=== PATIENT | male | born 1965 | race Caucasian/White ===

== ENCOUNTER 2020-07-06 08:26 | Outpatient (CLI) | payer BC, SELFPAY ==
--- NOTE | 2020-07-06 11:30 | NEURO_ITS ---
Impression: # Complains of numbness of feet. Not diabetic. # Normal motor and sensory nerve conduction study. # Normal needle/EMG exam. # Possibility of higher involvement cannot be ruled out. Nerve Conduction Studies Anti Sensory Summary Table Stim Site NR Peak (ms) P-T Amp (?V) Site1 Site2 Delta-P (ms) Dist (cm) Jose (m/s) Left Sup Fibular Anti Sensory (Ant Lat Mall) 14 cm 3.4 12.4 14 cm Ant Lat Mall 3.4 16.0 47 Right Sup Fibular Anti Sensory (Ant Lat Mall) 14 cm 3.4 6.9 14 cm Ant Lat Mall 3.4 16.0 47 Left Sural Anti Sensory (Lat Mall) Calf 3.9 11.1 Calf Lat Mall 3.9 16.0 41 Right Sural Anti Sensory (Lat Mall) Calf 3.8 9.4 Calf Lat Mall 3.8 16.0 42 Motor Summary Table Stim Site NR Onset (ms) O-P Amp (mV) Site1 Site2 Delta-0 (ms) Dist (cm) Jose (m/s) Left Peroneal Motor (Vastus Med) Ankle 4.3 5.7 Popit Ankle 9.5 41.0 43 Popit 13.8 3.5 Right Peroneal Motor (Vastus Med) Ankle 4.1 3.0 Popit Ankle 8.8 38.0 43 Popit 12.9 1.8 Left Tibial Motor (Abd Hilario Brev) Ankle 4.2 1.7 Knee Ankle 9.9 44.0 44 Knee 14.1 1.2 Right Tibial Motor (Abd Hilario Brev) Ankle 4.5 3.4 Knee Ankle 10.5 44.0 42 Knee 15.0 1.1 F Wave Studies NR F-Lat (ms) L-R F-Lat (ms) Left Peroneal (Mrkrs) (EDB) 54.80 0.48 Right Peroneal (Mrkrs) (EDB) 55.28 0.48 Left Tibial (Mrkrs) (Abd Hallucis) 55.01 0.87 Right Tibial (Mrkrs) (Abd Hallucis) 55.88 0.87 EMG Side Muscle Nerve Root Ins Act Fibs Amp Dur Recrt Comment Right AntTibialis Dp Br Fibular L4-5 Nml Nml Nml Nml Nml Right Gastroc Tibial S1-2 Nml Nml Nml Nml Nml Right Fibularis Long Sup Br Fibular L5-S1 Nml Nml Nml Nml Nml Right Flex Dig Long Tibial L5-S2 Nml Nml Nml Nml Nml Right Ext Dig Brev Dp Br Fibular L5, S1 Nml Nml Nml Nml Nml Left AntTibialis Dp Br Fibular L4-5 Nml Nml Nml Nml Nml Left Gastroc Tibial S1-2 Nml Nml Nml Nml Nml Left Fibularis Long Sup Br Fibular L5-S1 Nml Nml Nml Nml Nml Left Flex Dig Long Tibial L5-S2 Nml Nml Nml Nml Nml Left Ext Dig Brev Dp Br Fibular L5, S1 Nml Nml Nml Nml Nml MTDD
== END 2020-07-06 08:27 | disposition home or self-care (01) ==
PROVIDERS: Family Provider Internal Medicine; Visit Provider Internal Medicine
DX: G62.9 Polyneuropathy, unspecified (principal)
CPT/HCPCS: 95886; 95910

== ENCOUNTER 2021-05-15 01:09 | Day surgery (SDC) | payer BC, SELFPAY ==
[2021-05-10 15:14] VITALS: BMI 35.2
[2021-05-15 06:59] VITALS: BP 140/81; PULSE 74; RESP 20; TEMP 36.4; O2SAT 98
[2021-05-15] MEDS: LACTATED RINGERS 1,000 ML 150 ML IV CONT (07:03)
--- NOTE | 2021-05-15 07:26 | WPDGICN ---
Assessment and Plan Assessment and plan (1) Colon cancer screening: Code(s): Z12.11 - Encounter for screening for malignant neoplasm of colon Status: Acute Assessment and Plan: Patient presents for neoplasia screening. Appears to be at average risk for colon polyps. Further recommendations will be given after endoscopy. (2) Gastro-esophageal reflux disease without esophagitis: Code(s): K21.9 - Gastro-esophageal reflux disease without esophagitis Status: Acute Assessment and Plan: Patient has chronic GE reflux. Currently has no symptoms has been maintained on Nexium 40mg p.o. daily long-term. An EGD will be performed because of chronicity of diagnosis. GI Consult Note Consult date/time: 05/15/21 07:26 HPI: Evan Wood is a 56 year old male Presents for colonoscopy an EGD. Patient desires neoplasia screening. His current weight appetite bowel movements are normal. He denies abdominal pain. He has had no bleeding. Family history is noncontributory. He presents today for screening colonoscopy. Patient also has a long history of acid reflux. He has been on PPI therapy for more than 10 years. This is well controlled. He denies any heartburn or indigestion. He has had no dysphagia. He does have arthritis and occasionally requires nonsteroidal anti-inflammatory agent use. An EGD is requested will be performed because of chronic GE reflux disease. Review of Systems Review of Systems: All systems reviewed & are unremarkable except as noted in HPI and below PMFSH Past Medical History Medical History Arthritis CAD (coronary artery disease) Fourniers disease Hypertension Surgical History Surgical History H/O colonoscopy (~2006) and endoscopy History of endoscopy (~05/2013) 05/26/2013 S/P angioplasty with stent Family History Family History Father Heart disease Mother Heart disease Lung cancer Sibling Heart disease Other Diabetes mellitus Family history of coronary artery disease Social History Social History Smoking status: Never smoker Second hand tobacco smoke exposure: Yes Alcohol intake: current Drinks per week: 2 Alcohol use details: bourbon Substance use: never Substance use type: does not use Living arrangements: with family 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 Gender identity (if verbalized by the patient): Male Spiritual care concerns: No Agree to blood products: Yes Meds Home Medications and Allergies Home Medications Medication Instructions Recorded Confirmed Type aspirin 81 mg chewable tablet 81 mg PO DAILY #360 tablet 01/13/19 05/15/21 Rx clopidogrel 75 mg tablet 75 mg PO DAILY 04/27/19 05/15/21 History amlodipine 5 mg tablet 5 mg PO DAILY 05/12/19 05/15/21 History lisinopril 40 mg tablet 20 mg PO DAILY tablet 05/12/19 05/15/21 History nitroglycerin 0.4 mg sublingual 0.4 mg SUBLINGUAL ONCE PRN tablet 06/25/19 05/15/21 History tablet evolocumab 140 mg/mL subcutaneous 140 mg SUBCUT .Q2W ml 03/15/20 05/15/21 History pen injector coenzyme Q10 100 mg tablet 200 mg PO DAILY tablet 07/07/20 05/15/21 History metoprolol succinate 100 mg 50 mg PO DAILY tablet 07/07/20 05/15/21 History tablet,extended release 24 hr [id number]-afiurlld-mwtfry tablet 1 tablet PO DAILY 07/07/20 05/15/21 History diclofenac 75 mg-misoprostol 200 1 tablet PO BID 90 Days #180 tablet 07/28/20 05/15/21 Rx mcg tablet,immediate,delayed release esomeprazole magnesium 40 mg See Rx Instructions .ROUTE 05/01/21 05/15/21 Rx capsule,delayed release .COMPLEX #90 cap psyllium husk [Metamucil] 1 tbsp PO DAILY 05/10/21 05/15/21 History ranolazine 1,000 mg PO BID 05/10/21 05/15/21 Histo
--- NOTE | 2021-05-15 07:49 | WPDANESEPPF ---
Anes - Initial Pre Proc Eval Procedure: Operation Date: 05/15/21 08:00 Proposed Procedures p Esophagogastroduodenoscopy & Screening Colonoscopy - Moises Ag MD Date/Time: 05/15/21 07:49 Surgeon: Moises Ag MD Pre Op Diagnosis: GERD, neoplasm screening Patient Data Age: 56 Gender: M Height: 1.83 m Weight: 122.3 kg Last Vital Signs Temp 97.6 F 05/15/21 06:59 Pulse 74 05/15/21 06:59 Resp 20 05/15/21 06:59 BP 140/81 05/15/21 06:59 Pulse Ox 98 05/15/21 06:59 Allergies Allergy/AdvReac Type Severity Reaction Status Date / Time No Known Allergies Allergy Verified 05/15/21 06:56 Home Medications Medication Instructions Recorded Confirmed Type aspirin 81 mg chewable tablet 81 mg PO DAILY #360 tablet 01/13/19 05/15/21 Rx clopidogrel 75 mg tablet 75 mg PO DAILY 04/27/19 05/15/21 History amlodipine 5 mg tablet 5 mg PO DAILY 05/12/19 05/15/21 History lisinopril 40 mg tablet 20 mg PO DAILY tablet 05/12/19 05/15/21 History nitroglycerin 0.4 mg sublingual 0.4 mg SUBLINGUAL ONCE PRN tablet 06/25/19 05/15/21 History tablet evolocumab 140 mg/mL subcutaneous 140 mg SUBCUT .Q2W ml 03/15/20 05/15/21 History pen injector coenzyme Q10 100 mg tablet 200 mg PO DAILY tablet 07/07/20 05/15/21 History metoprolol succinate 100 mg 50 mg PO DAILY tablet 07/07/20 05/15/21 History tablet,extended release 24 hr [id number]-mwwdwhfi-ftgapn tablet 1 tablet PO DAILY 07/07/20 05/15/21 History diclofenac 75 mg-misoprostol 200 1 tablet PO BID 90 Days #180 tablet 07/28/20 05/15/21 Rx mcg tablet,immediate,delayed release esomeprazole magnesium 40 mg See Rx Instructions .ROUTE 05/01/21 05/15/21 Rx capsule,delayed release .COMPLEX #90 cap psyllium husk [Metamucil] 1 tbsp PO DAILY 05/10/21 05/15/21 History ranolazine 1,000 mg PO BID 05/10/21 05/15/21 History Lactobacillus rhamnosus GG 10 1 cap PO DAILY #10 cap 05/12/21 05/15/21 Rx billion cell capsule cephalexin 500 mg capsule 500 mg PO Q12H #20 cap 05/12/21 05/15/21 Rx Patient hx anesthesia problems: none Family hx anesthesia problems: none Results Review: All pre-operative results and documents have been reviewed as part of the pre-operative evaluation. [facility] Past Medical History Medical History Arthritis CAD (coronary artery disease) Fourniers disease Hypertension Surgical History Surgical History H/O colonoscopy (~2006) and endoscopy History of endoscopy (~05/2013) 05/26/2013 S/P angioplasty with stent Family History Family History Father Heart disease Mother Heart disease Lung cancer Sibling Heart disease Other Diabetes mellitus Family history of coronary artery disease Social History Social History Smoking status: Never smoker Second hand tobacco smoke exposure: Yes Alcohol intake: current Drinks per week: 2 Alcohol use details: bourbon Substance use: never Substance use type: does not use Living arrangements: with family 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 Informed Consent: The patient's anesthetic plan and its attendant risks and benefits were discussed with the patient/fami
--- NOTE | 2021-05-15 08:11 | SUR.OPER ---
EGD ended at 803. Colonoscopy started at 809.
[2021-05-15 08:21] VITALS: BP 128/70; PULSE 68; RESP 18; O2SAT 96
[2021-05-15 08:31] VITALS: BP 133/79; PULSE 63; RESP 17; O2SAT 97
[2021-05-15 08:41] VITALS: BP 151/86; PULSE 59; RESP 20; O2SAT 94
== END 2021-05-15 08:51 | disposition home or self-care (01) ==
PROVIDERS: PCP Family Medicine; Visit Provider Internal Medicine Gastroenterology
PROC: 0DJ08ZZ Inspection of Upper Intestinal Tract, Via Natural or Artificial Opening Endoscopic (ICD-10-PCS; CPT 43235; principal; 2021-05-15 08:00)
DX: Z12.11 Encounter for screening for malignant neoplasm of colon (principal); K64.8 Other hemorrhoids; K21.9 Gastro-esophageal reflux disease without esophagitis; Z79.82 Long term (current) use of aspirin; M19.90 Unspecified osteoarthritis, unspecified site; I25.10 Atherosclerotic heart disease of native coronary artery without angina pectoris; I10 Essential (primary) hypertension; E66.9 Obesity, unspecified; Z68.36 Body mass index [BMI] 36.0-36.9, adult
CPT/HCPCS: 45378; 43239; 87081; J2704; J7120